=== PATIENT | female | born 1995 | race Two or more races ===

== ENCOUNTER 2018-12-05 23:58 | Emergency (ER) | payer SELFPAY ==
[2018-12-06] MEDS ORDERED: NORMAL SALINE 1000 ML 1,000 ML IV ONE (01:53)
--- NOTE | 2018-12-06 02:04 | ER Document Report ---
ED General - General TRAVEL OUTSIDE OF THE [place] IN LAST 30 DAYS: No <MARK ROYAL - Last Filed: 12/06/18 04:42> <TRAVON JOHNSON - Last Filed: 12/06/18 05:23> - General Chief Complaint: Cough Stated Complaint: CHEST PAIN Time Seen by Provider: 12/06/18 01:18 - HPI Notes: Patient is a 23-year-old female who presents to the emergency department for evaluation of chest pain. She states is been present for a few weeks. It is in the left chest with radiation up into her shoulder and neck. She describes it as a tightness and a heaviness. She states occasionally it also radiates into her left arm. A very small amount of the time she feels short of breath. She denies any associated nausea, diaphoresis, near syncope. She never had anything similar to this in the past. She denies it is worsened with exertion. She states is there with her 24 hours a day. Nothing seems to make it better, deep breaths seem to make it worse. She has not had any recent surgeries, does admit to a spontaneous vaginal delivery 7 months ago. She is had no immobilization, h as no personal history of cancer, is not on OCPs. No family history of blood clots to her knowledge. She states she had a fever 4 or 5 days ago, but none since then. She has had a cough, but it has been minimal and nonproductive. (MARK ROYAL) - Related Data Allergies/Adverse Reactions: No Known Allergies Allergy (Unverified 12/06/18 00:02) Past Medical History - General Information source: Patient - Social History Smoking Status: Never Smoker Family History: CAD - Grandmother had an AZ at the age of 50 <MARK ROYAL - Last Filed: 12/06/18 04:42> Review of Systems - Review of Systems Constitutional: No symptoms reported EENT: No symptoms reported Cardiovascular: See HPI Respiratory: See HPI Gastrointestinal: No symptoms reported Genitourinary: No symptoms reported Female Genitourinary: No symptoms reported Musculoskeletal: No symptoms reported Skin: No symptoms reported Neurological/Psychological: No symptoms reported <MARK ROYAL - Last Filed: 12/06/18 04:42> Physical Exam <MARK ROYAL - Last Filed: 12/06/18 04:42> - Vital signs Vitals: Temp Pulse Resp BP Pulse Ox 99.9 F 118 H 20 125/80 98 12/06/18 00:02 12/06/18 00:02 12/06/18 00:02 12/06/18 00:02 12/06/18 00:02 - Notes Notes: Vital signs reviewed, please refer to chart. Patient is normocephalic, atraumatic. Pupils equal round, reactive to light. Neck is supple without meningismus. Heart is tachycardic with normal S1-S2. Lungs are clear to auscultation bilaterally. Chest wall is minimally tender. Abdomen is soft, nontender, normoactive bowel sounds throughout. Extremities without cyanosis, clubbing, edema. Calves are nontender. Peripheral pulses are equal. Skin is warm and dry. Patient is awake, alert, neurological exam is nonfocal. (MARK ROYAL) Course - Laboratory Result Diagrams: 12/06/18 02:28 12/06/18 02:28 <MARK ROYAL - Last Filed: 12/06/18 04:42> - Laboratory Result Diagrams: 12/06/18 02:28 12/06/18 02:28 <TRAVON JOHNSON - Last Filed: 12/06/18 05:23> - Re-evaluation Re-evalutation: 12/06/18 04:04 Patient presents emergency department for evaluation of left-sided chest pain, pleuritic in nature, occasional cough, and fever a few days ago. On arrival she is tachycardic. She is given IV fluids, laboratory investigations ordered. EKG is tachycardic but reveals no other significant abnormalities. Laboratory investigations were remarkable for an elevated d-dimer. Chest x-ray shows pleural effusion and some opacification, likely pneumonia. I am concerned, however, given her positive d-dimer and her continued tachycardia despite IV fluids. Given this information, CT angiogram of the chest was ordered. 12/06/18 04:25 12/06/18 04:42 CT angiogram performed, read still pending. Patient remained stable. She does have a large visible pleural effusion on CT and x-ray. Care of this patient was turned over to emergency medicine physician Lazaro Johnson, please see his documentation for the remainder of the patient's ED course and disposition. (MARK ROYAL) 12/06/18 05:[address] imaging was signed out to me, it was reviewed, demonstrated loculated small left-sided pleural effusion, and fluid along the left fissure, and a very small right lower lobe calcified granuloma. I talked with the patient and the patient's significant other, [place] have been in this country [place] 2 [place], after moving from [facility], asked if they had ever been exposed to TB, or had cough anytime more remotely, they stated that she had not, and she really does not have a cough now, and denies any hemoptysis, she just has the pain that she is had for about 3 weeks, with deep breathing. her CT also demonstrated possible pneumonia in the left upper lobe, which I think is worthwhile treating, I will give the patient a dose of IV antibiotics in the ED, and in addition give her prescription to take for 10 days she will be given follow-up with primary care as well as pulmonology. The rest of her blood work, and evaluation overall was reviewed, and appeared to be unremarkable, this was discussed with the patient and the patient's significant other, they were agreeable to this plan of care, and patient will be discharged, with follow-up. (TRAVON JOHNSON) - Vital Signs Vital signs: Temp Pulse Resp BP Pulse Ox 99.1 F 111 H 16 105/65 100 12/06/18 03:42 12/06/18 03:42 12/06/18 03:42 12/06/18 03:42 12/06/18 03:42 - Laboratory Laboratory results interpreted by me: 12/06/18 12/06/18 02:28 02:28 Plt Count 467 H D-Dimer 1.96 H - EKG Interpretation by Me Additional EKG results interpreted by me: 12/06/18 04:06 Sinus tachycardia with a rate of 111 bpm. Normal axis and intervals, no acute ST changes concerning for ischemia or infarction. (MARK ROYAL) Discharge <MARK ROYAL - Last Filed: 12/06/18 04:42> <TRAVON JOHNSON - Last Filed: 12/06/18 05:23> - Discharge Clinical Impression: Pleural effusion Pneumonia Qualifiers: Pneumonia type: due to unspecified organism Laterality: left Lung location: upper lobe of lung Qualified Code(s): J18.1 - Lobar pneumonia, unspecified organism Condition: Stable Disposition: HOME, SELF-CARE Instructions: Pneumonia ([facility]) Additional Instructions: Please Follow-up with lung doctor and with family doctor, call tomorrow for appointment. Prescriptions: Doxycycline Hyclate 100 mg PO BID #20 capsule Referrals: GLORIA ACHARYA MD [ACTIVE STAFF] - Follow up tomorrow [facility] [Provider Group] - Follow up tomorrow [facility] [Provider Group] - Follow up tomorrow Print Language: English
[2018-12-06 02:38] LABS: ABSOLUTE EOSINOPHILS # (AUTO) 0.2 10^3/uL (0.0-0.6); ABSOLUTE LYMPHOCYTES (AUTO) 1.2 10^3/uL (0.5-4.7); ABSOLUTE MONOCYTES (AUTO) 0.9 10^3/uL (0.1-1.4); ABSOLUTE NEUT (AUTO) 5.8 10^3/uL (1.7-8.2); BASOPHILS % (AUTO) 0.5 % (0-2); HEMOGLOBIN 13.1 g/dL (12.0-15.5); MEAN CORPUSCULAR HEMOGLOBIN 28.5 pg (27.0-33.4); MEAN CORPUSCULAR HGB CONC 35.4 g/dL (32.0-36.0); MEAN CORPUSCULAR VOLUME 81 fl (80-97); MONOCYTES % (AUTO) 11.5 % (3-13); PLATELET COUNT 467 10^3/uL (150-450); RED BLOOD COUNT 4.59 10^6/uL (3.72-5.28); RED CELL DISTRIBUTION WIDTH 12.6 % (11.5-14.0); TOTAL CELLS COUNTED % (AUTO) 100 %; WHITE BLOOD COUNT 8.1 10^3/uL (4.0-10.5)
[2018-12-06 02:54] LABS: ALANINE AMINOTRANSFERASE 31 U/L (9-52); ALBUMIN 3.9 g/dL (3.5-5.0); ALKALINE PHOSPHATASE 95 U/L (38-126); ANION GAP 10 (5-19); ASPARTATE AMINO TRANSFERASE 20 U/L (14-36); BILIRUBIN,DIRECT 0.3 mg/dL (0.0-0.4); BILIRUBIN,TOTAL 0.4 mg/dL (0.2-1.3); BLOOD UREA NITROGEN 7 mg/dL (7-20); CALCIUM 9.1 mg/dL (8.4-10.2); CARBON DIOXIDE 28 mmol/L (22-30); CHLORIDE 103 mmol/L (98-107); CREATINE KINASE 37 U/L (30-135); GLUCOSE 103 mg/dL (75-110); SODIUM 140.6 mmol/L (137-145); TOTAL PROTEIN 7.6 g/dL (6.3-8.2)
[2018-12-06 03:10] LABS: CREATINE KINASE MB < 0.22 ng/mL (<4.55); TROPONIN I < 0.012 ng/mL
--- NOTE | 2018-12-06 03:22 | RADIOLOGY REPORT (SQ) ---
EXAM DESCRIPTION: XR CHEST 1 VIEW COMPLETED DATE/TME: 12/06/2018 01:52 CLINICAL HISTORY: 23 years, Female, chest pain COMPARISON: None. NUMBER OF VIEWS: 1 TECHNIQUE: Portable chest LIMITATIONS: None. FINDINGS: Heart size normal. Small left pleural effusion. No pneumothorax. Minimal adjacent airspace opacity of the left lung base IMPRESSION: Small left pleural effusion with minimal adjacent airspace opacity copyright 2010 [employer]- All Rights Reserved
--- NOTE | 2018-12-06 05:05 | RADIOLOGY REPORT (SQ) ---
EXAM: CT chest angiography with IV contrast CLINICAL DATA: 23-year-old female with chest pain and dyspnea, rule out pulmonary embolism. TECHNICAL DATA: Following the administration of intravenous contrast, multiple high-resolution axial images of the chest were performed followed by sagittal and coronal reconstructed images. Coronal oblique MIP images were also performed. The CT study is performed according to ALARA (as low as reasonably achievable) or ALARA/IMAGE GENTLY, with automatic adjustment of mA and/or kV according to patient size. Performed on: 12/06/2018 at 4:23 AM COMPARISONS: Chest x-ray performed on 12/06/2018. FINDINGS: There is satisfactory visualization and contrast opacification of pulmonary arteries. No definite intra-arterial filling defects are identified to suggest acute or chronic pulmonary embolism. The thoracic aorta is normal in caliber and contour without evidence of aneurysm or dissection. The lungs are well expanded. There is a small loculated left pleural effusion with associated mild compressive atelectasis of the left lower lobe. There is also loculated pleural fluid along the left major fissure. There is a calcified granuloma in the right lower lobe posteriorly. There is a focal airspace opacity in the left upper lobe measuring approximately 1.8 x 1.3 cm in cross-sectional diameter concerning for an infectious or inflammatory process. The heart is normal in size. There is no pericardial effusion. There is no reflux of contrast into the hepatic veins to suggest right heart strain. There is no evidence of hilar, mediastinal or axillary lymphadenopathy. No acute osseous abnormality is identified. The visualized upper abdominal structures are unremarkable. IMPRESSION: 1. No CT evidence to suggest acute or chronic pulmonary embolism, aortic aneurysm or aortic dissection. 2. Small loculated left pleural effusion with associated compressive atelectasis of the left lower lobe. There is also loculated pleural fluid along the left major fissure. 3. Small focal airspace opacity in the left upper lobe concerning for an acute infectious or inflammatory process. 4. Right lower lobe granuloma.
[2018-12-06] MEDS ORDERED: DOXYCYCLINE HYCLATE INJ 100 MG VIAL IV ONE (05:20)
[2018-12-06 06:32] VITALS: BP 119/76
--- NOTE | 2018-12-06 20:48 | EKG REPORT ---
SEVERITY:- OTHERWISE NORMAL ECG - SINUS TACHYCARDIA : Confirmed by: Izabella Arriaga MD 06-Dec-2018 20:47:40
== END 2018-12-06 06:32 | disposition home or self-care (01) ==
LOC: ER 23:58
DX: J18.1 Lobar pneumonia, unspecified organism (principal); J90 Pleural effusion, not elsewhere classified; J84.10 Pulmonary fibrosis, unspecified; R07.89 Other chest pain; R05 Cough; R00.0 Tachycardia, unspecified; R79.1 Abnormal coagulation profile; Z82.49 Family history of ischemic heart disease and other diseases of the circulatory system
CPT/HCPCS: 93005; 99284; 96361; 96365; 36415; 87040; 82553; 82550; 85025; 80053; 84484; 85379; 71045; 71275; 93010; J3490; J7030